=== PATIENT | female | born 1940 | race Hispanic/Latino ===

== ENCOUNTER → 2019-12-19 | Outpatient (CLI) | payer MEDICARE | LOC: MAMMO 08:36 | PROVIDERS: ATTEND Internal Medicine | DX: Z12.31 Encounter for screening mammogram for malignant neoplasm of breast (principal) | CPT/HCPCS: 77067 ==

== ENCOUNTER → 2021-04-03 | Outpatient (CLI) | payer MEDICARE | LOC: MAMMO 08:45 | PROVIDERS: ATTEND Internal Medicine | DX: Z12.31 Encounter for screening mammogram for malignant neoplasm of breast (principal) | CPT/HCPCS: 77067 ==

== ENCOUNTER 2021-08-13 12:19 | Inpatient (IN) | payer MEDICARE, OTHER ==
[~2021-08-13] VITALS: Ht 160 cm; Wt 78.9 kg
[2021-08-13] MEDS ORDERED: Morphine 4mg Syringe 4 MG/ML INJ IV PRN (14:00)
[2021-08-13] MEDS ORDERED: ONDANSETRON HCL INJ 2MG/ML 2ML 2 MG/ML VIAL IV PRN (14:00)
[2021-08-13 14:37] LABS: BASOPHILS % 0.4 % (0.0-1.0); EOSINOPHILS # (AUTO) 0.1 (0.0-0.4); EOSINOPHILS % 0.5 % (0.0-6.0); HEMATOCRIT 39.3 % (34.2-44.1); HEMOGLOBIN 12.8 g/dL (12.0-16.0); LYMPHOCYTES # (AUTO) 1.2 (1.0-3.2); LYMPHOCYTES % 11.3 % (18.0-39.1); MEAN CORPUSCULAR HEMOGLOBIN 29.2 pg (28-32); MEAN CORPUSCULAR HGB CONC 32.6 g/dL (31-35); MEAN CORPUSCULAR VOLUME 89.5 fL (81-99); MONOCYTES # (AUTO) 0.6 (0.2-0.8); MONOCYTES % 5.2 % (4.4-11.3); NEUTROPHILS # (AUTO) 9.1 (2.1-6.9); NEUTROPHILS % 82.2 % (38.7-80.0); PLATELET COUNT 220 x10e3/uL (140-360); RED BLOOD COUNT 4.39 x10e6/uL (3.6-5.1); RED CELL DISTRIBUTION WIDTH 13.7 % (11.7-14.4)
[2021-08-13 14:56] LABS: ALBUMIN 4.2 g/dL (3.5-5.0); ALBUMIN/GLOBULIN RATIO 1.3 (0.8-2.0); CALCIUM 9.7 mg/dL (8.4-10.2); CREATININE, SERUM 0.84 mg/dL (0.57-1.11)
[2021-08-13 15:54] VITALS: BP 151/75
[2021-08-13 16:14] VITALS: BP 151/75
[2021-08-13] MEDS ORDERED: GLIMEPIRIDE2 MG PO (16:45)
[2021-08-13] MEDS ORDERED: METOPROLOL TART50 MG PO (16:45)
[2021-08-13] MEDS ORDERED: ESTRACE42.5 GM VG (16:45)
[2021-08-13] MEDS ORDERED: NATEGLINIDE60 MG PO (16:45)
[2021-08-13] MEDS ORDERED: FLONASE ALLERG9.9 ML INH (16:45)
[2021-08-13] MEDS ORDERED: AMLODIPINE BESY10 MG PO (16:45)
[2021-08-13] MEDS ORDERED: VASOTEC10 M1 PO (16:45)
[2021-08-13] MEDS ORDERED: DULERA 100 MCG/13 GM INH (16:45)
[2021-08-13] MEDS ORDERED: OLOPATADINE HC2.5 ML OU (16:45)
[2021-08-13] MEDS ORDERED: JANUMET 50-1,01 EACH PO (16:45)
[2021-08-13] MEDS ORDERED: ALTOPREV40 MG PO (16:45)
[2021-08-13] MEDS ORDERED: SYNTHROID100 MCG PO (16:45)
[2021-08-13] MEDS ORDERED: ASPIRIN81 MG PO (16:45)
[2021-08-13 17:28] VITALS: BP 151/75
[2021-08-13] MEDS ORDERED: DEXTROSE 50% SYRINGE 50 ML IV PRN (17:30)
[2021-08-13 20:00] VITALS: BP 151/79
[2021-08-13] MEDS: INSULIN LISPRO 100 UNIT/1 ML 3ML VIAL SQ SCH (20:35)
[2021-08-13 20:47] LABS: CLARITY,URINE CLEAR (CLEAR); COLOR,URINE YELLOW (YELLOW); KETONES,URINE 1+ (NEGATIVE); LEUKOCYTE ESTERASE ,URINE NEGATIVE (NEGATIVE); NITRITE,URINE NEGATIVE (NEGATIVE); PROTEIN,URINE DIPSTICK NEGATIVE (NEGATIVE); URINE UROBILINOGEN 0.2 mg/dL (0.2 - 1)
[2021-08-13 20:57] LABS: BACTERIA,URINE RARE /HPF; RBC,URINE 0-5 /HPF (0-5)
[2021-08-13 22:05] VITALS: BP 151/79
[2021-08-13] MEDS: SODIUM CHLORIDE 0.9% 1000ML 1,000 ML IV SCH (23:29)
[2021-08-14] VITALS: BP 158/83
[2021-08-14 04:00] VITALS: BP 144/77
[2021-08-14 05:58] LABS: BASOPHILS % 0.3 % (0.0-1.0); EOSINOPHILS % 0.1 % (0.0-6.0); HEMATOCRIT 37.2 % (34.2-44.1); HEMOGLOBIN 12.5 g/dL (12.0-16.0); LYMPHOCYTES # (AUTO) 1.2 (1.0-3.2); LYMPHOCYTES % 11.4 % (18.0-39.1); MEAN CORPUSCULAR HEMOGLOBIN 29.6 pg (28-32); MEAN CORPUSCULAR HGB CONC 33.6 g/dL (31-35); MEAN CORPUSCULAR VOLUME 88.2 fL (81-99); MONOCYTES # (AUTO) 0.6 (0.2-0.8); MONOCYTES % 5.6 % (4.4-11.3); NEUTROPHILS # (AUTO) 8.3 (2.1-6.9); NEUTROPHILS % 82.3 % (38.7-80.0); PLATELET COUNT 208 x10e3/uL (140-360); RED BLOOD COUNT 4.22 x10e6/uL (3.6-5.1); RED CELL DISTRIBUTION WIDTH 13.8 % (11.7-14.4)
[2021-08-14 06:36] LABS: ALBUMIN 3.7 g/dL (3.5-5.0); ALBUMIN/GLOBULIN RATIO 1.2 (0.8-2.0); ANION GAP 17.5 mmol/L (8-16); CALCIUM 8.9 mg/dL (8.4-10.2); CREATININE, SERUM 0.75 mg/dL (0.57-1.11); POTASSIUM 3.5 mmol/L (3.5-5.1)
[2021-08-14] MEDS: INSULIN LISPRO 100 UNIT/1 ML 3ML VIAL SQ SCH ×3 (07:30→16:30)
[2021-08-14] MEDS ORDERED: ACETAMINOPHEN 325 MG TAB PO PRN (08:00)
[2021-08-14 08:11] VITALS: BP 159/79
[2021-08-14] MEDS: OYST-CAL-D 500MG TABLET PO SCH ×2 (09:00→16:19)
[2021-08-14] MEDS ORDERED: FLUTICASONE PROPIONATE NASAL SPRAY NS PRN (09:00)
[2021-08-14] MEDS ORDERED: AMLODIPINE BESYLATE 10 MG TAB PO SCH (09:00)
[2021-08-14] MEDS ORDERED: MOMETASONE INH PRN (09:00)
[2021-08-14] MEDS: METOPROLOL TARTRATE 50 MG TAB PO SCH ×2 (09:00→16:27)
[2021-08-14] MEDS: ENALAPRIL MALEATE 10 MG TAB PO SCH ×2 (09:00→16:27)
[2021-08-14] MEDS ORDERED: FORMOTEROL INH PRN (09:00)
[2021-08-14] MEDS ORDERED: BUPIVACAINE HCL 0.5% INJ 30 ML VIAL INJ ONE (09:12)
[2021-08-14] MEDS ORDERED: OLOPATADINE (OPTH) 5 ML BTL OP PRN (09:15)
[2021-08-14] MEDS ORDERED: SIMETHICONE 80 MG CHEW PO ONE (09:30)
[2021-08-14] MEDS ORDERED: ONDANSETRON HCL 4 MG ORAL DISINTEGRATING TAB PO PRN (09:30)
[2021-08-14] MEDS: SODIUM CHLORIDE 0.9% 1000ML 1,000 ML IV SCH (12:00)
[2021-08-14] MEDS ORDERED: SODIUM CHLORIDE 0.9% 1000ML 1,000 ML IV SCH (12:15)
[2021-08-14] MEDS ORDERED: HYDROMORPHONE 0.2MG/ML-SOD CHL 30ML PCA SYRINGE IV PRN (12:15)
[2021-08-14] MEDS ORDERED: ACETAMINOPHEN 1000 MG/100 ML IV PRN (12:15)
[2021-08-14] MEDS ORDERED: NALOXONE HCL INJ 0.4 MG/ML AMP IV PRN (12:15)
[2021-08-14] MEDS ORDERED: ONDANSETRON HCL INJ 2MG/ML 2ML 2 MG/ML VIAL IV PRN (12:15)
[2021-08-14] MEDS ORDERED: HYDROMORPHONE 0.2MG/ML-SOD CHL 30ML PCA SYRINGE IV ONE (12:47)
[2021-08-14] MEDS ORDERED: PROPOFOL IV EMULSION 10 MG/ML 20 ML VIAL ONE (12:52)
[2021-08-14] MEDS ORDERED: LIDOCAINE HCL 2% LOCAL INJ 5 ML SDV VIAL INJ ONE (12:52)
[2021-08-14] MEDS ORDERED: POVIDONE IODINE 0.05% 0.05 % ML PO ONE (12:52)
[2021-08-14] MEDS ORDERED: ONDANSETRON HCL INJ 2MG/ML 2ML 2 MG/ML VIAL ONE (12:52)
[2021-08-14] MEDS ORDERED: DEXAMETHASONE SOD PHOS INJ 4 MG/ML SDV ONE (12:52)
[2021-08-14] MEDS ORDERED: SEVOFLURANE INHAL SOLN 250 ML PEN BTL ONE (12:52)
[2021-08-14] MEDS ORDERED: KETOROLAC TROMETHAMINE 30 MG/ML VIAL ONE (12:52)
[2021-08-14] MEDS ORDERED: ROPIVACAINE 0.5% 5 MG/ML 30 ML SDV ONE (13:18)
[2021-08-14] MEDS ORDERED: FENTANYL CITRATE/PF 100MCG/2 ML INJ ONE (13:24)
[2021-08-14] MEDS ORDERED: MIDAZOLAM HCL 2 MG/2 ML VIAL ONE (13:24)
[2021-08-14 16:54] VITALS: BP 120/69
[2021-08-14] MEDS ORDERED: Cefazolin 1 GM in SODIUM CHLORIDE 0.9% 50ML 50 ML IV SCH (18:30)
[2021-08-14] MEDS ORDERED: SIMVASTATIN 20 MG TAB PO SCH (21:00)
[2021-08-15] MEDS ORDERED: LEVOTHYROXINE SODIUM 100 MCG TAB PO SCH (06:00)
[2021-08-15] MEDS ORDERED: RIVAROXABAN 10 MG TABLET PO SCH (17:00)
== END 2021-08-14 17:58 | DRG 517 ==
LOC: ER 12:43 → ERHOLD 13:57 → MED/SURG 15:19 → OBSVTOIN 08-14 12:12
PROVIDERS: ADMIT Internal Medicine; ATTEND Internal Medicine
PROC: 0QSD04Z Reposition Right Patella with Internal Fixation Device, Open Approach (ICD-10-PCS; principal; 2021-08-14 12:00)
DX: S82.041A Displaced comminuted fracture of right patella, initial encounter for closed fracture (principal); I10 Essential (primary) hypertension; E78.5 Hyperlipidemia, unspecified; E11.9 Type 2 diabetes mellitus without complications; E03.9 Hypothyroidism, unspecified; W01.0XXA Fall on same level from slipping, tripping and stumbling without subsequent striking against object, initial encounter; Y93.01 Activity, walking, marching and hiking; E66.9 Obesity, unspecified; Z68.30 Body mass index [BMI] 30.0-30.9, adult; Z20.822 Contact with and (suspected) exposure to COVID-19; Z91.040 Latex allergy status; Z79.4 Long term (current) use of insulin
CPT/HCPCS: 36415; 71045; 76000; 80053; 80061; 81001; 82948; 83036; 85025; 87086; 93005; 94799; 99284; C1713; G0378; J0690; J1100; J1885; J2001; J2250; J2405; J2795; J3010; J7030; U0002

== ENCOUNTER 2021-10-25 06:58 | Outpatient (RCR) | payer MEDICARE ==
[~2021-10-25 06:58] MED LIST: ALTOPREV40 MG PO; AMLODIPINE BESY10 MG PO; ASPIRIN81 MG PO; DULERA 100 MCG/13 GM INH; ESTRACE42.5 GM VG; FLONASE ALLERG9.9 ML INH; GLIMEPIRIDE2 MG PO; JANUMET 50-1,01 EACH PO; METOPROLOL TART50 MG PO; NATEGLINIDE60 MG PO; OLOPATADINE HC2.5 ML OU; SYNTHROID100 MCG PO; VASOTEC10 M1 PO
== END 2021-10-26 ==
LOC: PT 06:58
PROVIDERS: ATTEND Specialist
DX: S82.041D Displaced comminuted fracture of right patella, subsequent encounter for closed fracture with routine healing (principal); M62.81 Muscle weakness (generalized); M25.561 Pain in right knee; M25.661 Stiffness of right knee, not elsewhere classified; M25.461 Effusion, right knee

== ENCOUNTER → 2021-11-26 | Outpatient (RCR) | payer MEDICARE | LOC: PT 10-29 07:01 | PROVIDERS: ATTEND Specialist | DX: S82.041A Displaced comminuted fracture of right patella, initial encounter for closed fracture (principal) ==

== ENCOUNTER 2021-12-12 06:58 | Outpatient (RCR) | payer MEDICARE | END 2021-12-26 | LOC: PT 06:58 | PROVIDERS: ATTEND Specialist | DX: S82.041A Displaced comminuted fracture of right patella, initial encounter for closed fracture (principal) | CPT/HCPCS: 97139 ==

== ENCOUNTER → 2024-03-23 | Day surgery (SDC) | payer MEDICARE, OTHER ==
[2024-03-18 12:50] LABS: BASOPHILS % 0.5 % (0.0-1.0); EOSINOPHILS # (AUTO) 0.1 (0.0-0.4); EOSINOPHILS % 1.2 % (0.0-6.0); HEMATOCRIT 37.1 % (34.2-44.1); HEMOGLOBIN 11.8 g/dL (12.0-16.0); LYMPHOCYTES # (AUTO) 1.2 (1.0-3.2); LYMPHOCYTES % 20.5 % (18.0-39.1); MEAN CORPUSCULAR HEMOGLOBIN 27.8 pg (28-32); MEAN CORPUSCULAR HGB CONC 31.8 g/dL (31-35); MEAN CORPUSCULAR VOLUME 87.3 fL (81-99); MONOCYTES # (AUTO) 0.5 (0.2-0.8); MONOCYTES % 9.3 % (4.4-11.3); NEUTROPHILS # (AUTO) 3.9 (2.1-6.9); NEUTROPHILS % 68.3 % (38.7-80.0); PLATELET COUNT 204 x10e3/uL (140-360); RED BLOOD COUNT 4.25 x10e6/uL (3.6-5.1); RED CELL DISTRIBUTION WIDTH 15.2 % (11.7-14.4); WHITE BLOOD COUNT 5.72 x10e3/uL (4.8-10.8)
[2024-03-18 13:22] LABS: ANION GAP 13.5 mmol/L (8-16); CALCIUM 9.4 mg/dL (8.4-10.2); CREATININE, SERUM 0.75 mg/dL (0.57-1.11); POTASSIUM 4.5 mmol/L (3.5-5.1)
[~2024-03-23] MED LIST changes: +ACETAMINOPHEN 1000 MG/100 ML IV ONE; +BUPIVACAINE HCL 0.5% INJ 30 ML VIAL INJ ONE; +EPHEDRINE SULFATE INJ 50 MG/ML VIAL ONE; +FENTANYL CITRATE/PF 100MCG/2 ML INJ ONE; +LACTATED RINGER'S 1,000 ML ONE; +LIDOCAINE HCL 2% LOCAL INJ 5 ML SDV VIAL INJ ONE; +NEOSTIGMINE 1 MG/ML 10ML VIAL ONE; +ONDANSETRON HCL INJ 2MG/ML 2ML 2 MG/ML VIAL ONE; +PROBIOTIC1 EAC1 PO; +PROPOFOL IV EMULSION 10 MG/ML 20 ML VIAL ONE; +QUESTRAN PACKET4 GM PO; +SEVOFLURANE INHAL SOLN 250 ML PEN BTL ONE; +VENTOLIN HFA18 GM INH
[2024-03-23 14:10] VITALS: BP 161/89; PULSE 60; RESP 16; O2SAT 99
== END | disposition home or self-care (01) ==
LOC: OR 09:56
PROVIDERS: ATTEND Podiatrist Foot & Ankle Surgery
DX: M72.2 Plantar fascial fibromatosis (principal); E83.59 Other disorders of calcium metabolism; M77.32 Calcaneal spur, left foot; G47.33 Obstructive sleep apnea (adult) (pediatric); E11.9 Type 2 diabetes mellitus without complications; I10 Essential (primary) hypertension; E78.5 Hyperlipidemia, unspecified; J45.909 Unspecified asthma, uncomplicated; M19.90 Unspecified osteoarthritis, unspecified site; G89.29 Other chronic pain; M81.0 Age-related osteoporosis without current pathological fracture; E66.01 Morbid (severe) obesity due to excess calories; E03.9 Hypothyroidism, unspecified; Z91.041 Radiographic dye allergy status; Z91.040 Latex allergy status; Z01.812 Encounter for preprocedural laboratory examination; Z01.818 Encounter for other preprocedural examination; Z79.84 Long term (current) use of oral hypoglycemic drugs; Z79.899 Other long term (current) drug therapy
CPT/HCPCS: 28108; 28899; 29893; 36415; 71046; 80048; 85025; 88305; 88311; C1762; J0131; J2001; J2405; J2704; J3010; J7121; 76000; 88304; J2710

== ENCOUNTER → 2024-10-27 | Outpatient (REF) | payer MEDICARE, OTHER ==
[~2024-10-27] MED LIST changes: -ACETAMINOPHEN 1000 MG/100 ML IV ONE; -BUPIVACAINE HCL 0.5% INJ 30 ML VIAL INJ ONE; -EPHEDRINE SULFATE INJ 50 MG/ML VIAL ONE; -FENTANYL CITRATE/PF 100MCG/2 ML INJ ONE; -LACTATED RINGER'S 1,000 ML ONE; -LIDOCAINE HCL 2% LOCAL INJ 5 ML SDV VIAL INJ ONE; -NEOSTIGMINE 1 MG/ML 10ML VIAL ONE; -ONDANSETRON HCL INJ 2MG/ML 2ML 2 MG/ML VIAL ONE; -PROPOFOL IV EMULSION 10 MG/ML 20 ML VIAL ONE; -SEVOFLURANE INHAL SOLN 250 ML PEN BTL ONE
== END ==
LOC: US 08:22
PROVIDERS: ATTEND Urology
DX: R31.21 Asymptomatic microscopic hematuria (principal)
CPT/HCPCS: 74018; 76770; 76857

== ENCOUNTER 2025-04-03 10:38 | Inpatient (IN) | payer MEDICARE, OTHER ==
[2025-03-29 10:34] LABS: BASOPHILS % 0.5 % (0.0-1.0); EOSINOPHILS % 0.5 % (0.0-6.0); LYMPHOCYTES % 20.0 % (18.0-39.1); MONOCYTES % 8.0 % (4.4-11.3); NEUTROPHILS % 70.7 % (38.7-80.0); RED CELL DISTRIBUTION WIDTH 15.1 % (11.7-14.4)
[2025-03-29 11:02] LABS: EST GLOMERULAR FILTRATION RATE 86.0 ML/MIN (>=60)
[~2025-04-03] VITALS: Ht 160 cm; Wt 67.6 kg
[2025-04-03] MEDS: GENTAMICIN 80MG/NS 100 ML 200 ML IV ONE (11:47)
[2025-04-03] MEDS: CLINDAMYCIN 600MG / 50ML 50 ML IV ONE (11:47)
[2025-04-03] MEDS: LACTATED RINGER'S 1,000 ML ONE (11:47)
[2025-04-03] MEDS: PIPERACILLIN/TAZOBACTAM 3.375 GM VIAL ONE (11:47)
[2025-04-03] MEDS ORDERED: FENTANYL CITRATE/PF 100MCG/2 ML INJ ONE (13:36)
[2025-04-03] MEDS ORDERED: PROPOFOL IV EMULSION 10 MG/ML 20 ML VIAL ONE (13:36)
[2025-04-03] MEDS ORDERED: CEFTRIAXONE 1 GM VIAL ONE (13:37)
[2025-04-03] MEDS ORDERED: ROCURONIUM BROMIDE 1 ML IV ONE ×2 (13:37→15:18)
[2025-04-03] MEDS ORDERED: LIDOCAINE HCL 2% LOCAL INJ 5 ML SDV VIAL INJ ONE (14:21)
[2025-04-03] MEDS ORDERED: GLYCOPYRROLATE INJ 0.2 MG/ML VIAL ONE (14:24)
[2025-04-03] MEDS ORDERED: ONDANSETRON HCL INJ 2MG/ML 2ML 2 MG/ML VIAL ONE ×2 (14:27→14:54)
[2025-04-03] MEDS ORDERED: DEXAMETHASONE SOD PHOS INJ 4 MG/ML SDV ONE (14:27)
[2025-04-03] MEDS ORDERED: EPHEDRINE SULFATE INJ 50 MG/ML VIAL ONE (14:31)
[2025-04-03] MEDS ORDERED: SUCCINYLCHOLINE CHLORIDE 20 MG/ML 10ML VIAL ONE (14:48)
[2025-04-03] MEDS ORDERED: PHENAZOPYRIDINE HCL 100 MG TAB PO PRN (15:00)
[2025-04-03] MEDS ORDERED: ACETAMINOPHEN 1000 MG/100 ML IV PRN (15:00)
[2025-04-03] MEDS ORDERED: ONDANSETRON HCL INJ 2MG/ML 2ML 2 MG/ML VIAL IV PRN (15:00)
[2025-04-03] MEDS ORDERED: ACETAMINOPHEN/CODEINE 300MG - 30MG TAB PO PRN (15:00)
[2025-04-03] MEDS ORDERED: DIPHENHYDRAMINE HCL 25 MG CAP PO PRN (15:00)
[2025-04-03] MEDS ORDERED: SUGAMMADEX SODIUM 200 MG/2 ML VIAL IV ONE ×2 (15:13→15:48)
[2025-04-03 16:48] LABS: BASOPHILS % 0.7 % (0.0-1.0); EOSINOPHILS % 0.6 % (0.0-6.0); LYMPHOCYTES % 18.8 % (18.0-39.1); MONOCYTES % 4.2 % (4.4-11.3); NEUTROPHILS % 75.6 % (38.7-80.0); RED CELL DISTRIBUTION WIDTH 14.7 % (11.7-14.4)
[2025-04-03 17:23] LABS: EST GLOMERULAR FILTRATION RATE 88.0 ML/MIN (>=60)
[2025-04-03 19:20] VITALS: BP 148/68; PULSE 56; RESP 18; TEMP 97; O2SAT 97
[2025-04-03 20:00] VITALS: BP 122/68; PULSE 92; RESP 17; TEMP 97.5; O2SAT 100
[2025-04-03 21:00] VITALS: BP 122/68; PULSE 92; RESP 17; TEMP 97.5; O2SAT 100
[2025-04-03 21:41] VITALS: PULSE 74; RESP 16; O2SAT 100
[2025-04-03] MEDS: SENNA-S TABLET PO SCH (21:59)
[2025-04-03] MEDS: SODIUM CHLORIDE 0.9% 1000ML 1,000 ML IV SCH (22:00)
[2025-04-03] MEDS ORDERED: SEVOFLURANE INHAL SOLN 250 ML PEN BTL ONE (22:40)
[2025-04-04] VITALS (10 sets, daily range): BP systolic 106–127; BP diastolic 58–71; PULSE 62–80; RESP 17–18; TEMP 97.2–98; O2SAT 96–100
[2025-04-04 06:02] LABS: BASOPHILS % 0.1 % (0.0-1.0); EOSINOPHILS % 0.0 % (0.0-6.0); LYMPHOCYTES % 6.7 % (18.0-39.1); MONOCYTES % 5.1 % (4.4-11.3); NEUTROPHILS % 87.7 % (38.7-80.0); RED CELL DISTRIBUTION WIDTH 14.7 % (11.7-14.4)
[2025-04-04 06:35] LABS: EST GLOMERULAR FILTRATION RATE 86.0 ML/MIN (>=60)
[2025-04-04] MEDS ORDERED: DEXTROSE 50% SYRINGE 50 ML IV PRN (20:45)
[2025-04-04] MEDS: INSULIN REGULAR, HUMAN 100 UNIT/1 ML SQ SCH (21:45)
[2025-04-05] VITALS (11 sets, daily range): BP systolic 126–147; BP diastolic 63–82; PULSE 75–87; RESP 18–20; TEMP 97.9–98.6; O2SAT 97–100
[2025-04-05 08:50] LABS: BASOPHILS % 0.1 % (0.0-1.0); EOSINOPHILS % 0.1 % (0.0-6.0); LYMPHOCYTES % 12.8 % (18.0-39.1); MONOCYTES % 8.8 % (4.4-11.3); NEUTROPHILS % 77.9 % (38.7-80.0); RED CELL DISTRIBUTION WIDTH 15.1 % (11.7-14.4)
[2025-04-05 09:24] LABS: EST GLOMERULAR FILTRATION RATE 87.0 ML/MIN (>=60)
[2025-04-06 03:06] VITALS: BP 150/76; PULSE 79; RESP 18; TEMP 98.4; O2SAT 97
[2025-04-06 06:30] LABS: BASOPHILS % 0.2 % (0.0-1.0); EOSINOPHILS % 0.9 % (0.0-6.0); LYMPHOCYTES % 18.4 % (18.0-39.1); MONOCYTES % 10.1 % (4.4-11.3); NEUTROPHILS % 70.1 % (38.7-80.0); RED CELL DISTRIBUTION WIDTH 14.9 % (11.7-14.4)
[2025-04-06 06:48] LABS: EST GLOMERULAR FILTRATION RATE 89.0 ML/MIN (>=60)
[2025-04-06 08:16] VITALS: BP 150/76; PULSE 83; RESP 18; TEMP 97.7; O2SAT 98
[2025-04-06] MEDS ORDERED: LEVOFLOXACIN250 MG PO (11:03)
[2025-04-06 13:03] VITALS: BP 121/85; PULSE 96; RESP 18; TEMP 97.9; O2SAT 99
== END 2025-04-06 13:15 | disposition home or self-care (01) | DRG 748 ==
LOC: OR 10:38 → MED/SURG3 14:47
PROVIDERS: ADMIT Internal Medicine; ATTEND Internal Medicine
PROC: 0TSD0ZZ Reposition Urethra, Open Approach (ICD-10-PCS; 2025-04-03)
PROC: 0JUC0KZ Supplement of Pelvic Region Subcutaneous Tissue and Fascia with Nonautologous Tissue Substitute, Open Approach (ICD-10-PCS; principal; 2025-04-03 14:20)
DX: N81.3 Complete uterovaginal prolapse (principal); Z87.440 Personal history of urinary (tract) infections; G89.18 Other acute postprocedural pain; D64.9 Anemia, unspecified; I10 Essential (primary) hypertension; E03.9 Hypothyroidism, unspecified; E78.5 Hyperlipidemia, unspecified; E11.9 Type 2 diabetes mellitus without complications; Z91.041 Radiographic dye allergy status; Z91.040 Latex allergy status; R33.9 Retention of urine, unspecified; N39.46 Mixed incontinence; R31.29 Other microscopic hematuria; N32.89 Other specified disorders of bladder
CPT/HCPCS: 36415; 71046; 74420; 80048; 82948; 83735; 85025; 93005; 94799; C1762; J0330; J0696; J1100; J1580; J2003; J2405; J2543; J7030